=== PATIENT | male | born 1950 | race Two or more races ===

== ENCOUNTER 2016-10-11 05:13 | Day surgery (SDC) | payer MEDICARE, OTHER ==
[~2016-10-11] VITALS: Ht 167.6 cm; Wt 72.1 kg
--- NOTE | ~2016-10-11 | OR ---
PATIENT'S NAME: KAUR CARDENAS [facility] AGE: 66 Y [address] ROOM: [place] [address] LOCATION: [facility] [place] ADMIT DATE: 10/11/2016 OR/Procedure Report DISCHARGE DATE: FAMILY PHYSICIAN: PHYSICIAN, NO ATTENDING PHYSICIAN: Jonah Huerta SURGEON: Jonha Huerta MD CULTURIST: DATE OF PROCEDURE: 10/11/2016 PREOPERATIVE DIAGNOSIS: Carcinoma of the bladder. POSTOPERATIVE DIAGNOSIS: Carcinoma of the bladder. PROCEDURE: TUR, bladder tumor. DESCRIPTION OF PROCEDURE: After adequate anesthesia, he was prepped and draped. A cystoscope was inserted. The anterior urethra was normal. There was some early lateral lobe enlargement, but no significant obstruction. Examination of the bladder revealed changes on the trigone across or to the right orifice, consistent with recurrent transitional cell carcinoma. The remaining bladder was unremarkable. Resectoscope was inserted and this tissue across the trigone to the right orifice was all resected and fulgurated. The chips were irrigated from the bladder with the Milton evacuator. A #20 three-way Dwyer catheter was inserted. He was accompanied to recovery area. JONAH HUERTA MD EKNelsy/sahral /[id number] d: 10/11/16 1833 t: 10/15/16 0409, OPERATIVE SUMMARY
--- NOTE | ~2016-10-11 | HP ---
PATIENT'S NAME: KAUR CARDENAS [facility] AGE: 66 Y [address] ROOM: [place] [address] LOCATION: [facility] [place] ADMIT DATE: 10/11/2016 History & Physical DISCHARGE DATE: FAMILY PHYSICIAN: PHYSICIAN, UNKNOWN ATTENDING PHYSICIAN: Jonah Moise DATE OF SERVICE: 10/11/2016 HISTORY OF PRESENT ILLNESS: A 66-year-old male, who was found to have transitional cell carcinoma of the bladder in 2012, at which time he had a TUR of the tumor. He then did fine, but in May 2016, he had an abnormal urine cytology, and a cystoscopy and TUR of bladder tumor was done. He was found to have transitional cell carcinoma at the right bladder neck area. Pathology report revealed a low-grade non-invasive carcinoma. He is seen now for followup, cystoscopy, and biopsies. PAST MEDICAL HISTORY AND ILLNESSES: 1. Arteriosclerotic heart disease. 2. Hypertension. 3. Hypercholesteremia. OPERATIONS: As above. ALLERGIES: NONE KNOWN. PHYSICAL EXAMINATION: GENERAL: A well-developed, well-nourished male. CHEST: Clear. HEART: Normal sinus rhythm. ABDOMEN: Soft with no palpable masses. GENITOURINARY: Normal penis and meatus. Testicles are normal size and normal to palpation. Prostate is enlarged, smooth, symmetrical, and benign. RECTAL: No palpable masses. IMPRESSION: Transitional cell carcinoma of the bladder. PLAN: As above. PATIENT'S NAME: KAUR CARDENAS [facility] AGE: 66 Y [address] ROOM: [place] [address] LOCATION: [facility] [place] ADMIT DATE: 10/11/2016 History & Physical DISCHARGE DATE: FAMILY PHYSICIAN: PHYSICIAN, UNKNOWN ATTENDING PHYSICIAN: Jonah Moise JONAH MOISE MD EKNelsy/modl /[id number] D: 649 T: HISTORY & PHYSICAL
[~2016-10-11 05:13] MED LIST: ASPIRIN LO-DOSE81 MG PO; BRILINTA90 MG PO; CIPRO500 MG PO; COREG12.5 MG PO; CPAP INH; CRESTOR20 MG PO; DIOVAN80 MG PO; FLOMAX0.4 MG PO; INSPRA25 MG PO; XALATAN2.5 ML OPHTH
[2016-10-11 06:01] LABS: BASOPHIL % 0.4 %; EOSINOPHIL # 0.3 K/uL (0.0-0.5); EOSINOPHIL % 3.1 %; HEMATOCRIT 41.3 % (37.0-53.0); HEMOGLOBIN 13.5 g/dL (11.0-16.0); IMMATURE GRANULOCYTE % 0.4 %; LYMPHOCYTE # 2.7 K/uL (0.8-4.0); MCH 28.1 pg (27.0-34.0); MCHC 32.7 gm/dL (32.0-36.5); MONOCYTE # 0.7 K/uL (0.0-1.0); MONOCYTE % 8.9 %; MPV 8.9 fl (9.4-12.4); NEUTROPHIL # (ANC) 4.5 K/uL (1.4-9.0); NEUTROPHIL % 54.2 %; NRBC % 0 /100WBC (0-0.00); PLATELET COUNT 210 K/uL (150-450); WBC 8.3 K/uL (4.0-11.0)
[2016-10-11 06:20] LABS: ALBUMIN 3.6 gm/dL (3.5-5.0); ALK PHOS 93 IU/L (33-138); ALT 44 IU/L (12-78); AST 28 IU/L (10-40); BLOOD UREA NITROGEN 17 mg/dL (6-24); CALCIUM 8.8 mg/dL (8.5-10.5); CHLORIDE 104 mMol/L (96-110); CO2 27 mMol/L (22-32); CREATININE 0.8 mg/dL (0.6-1.3); ESTIMATED GFR (MDRD EQUATION) > 60; SODIUM 139 mMol/L (135-145); TOTAL PROTEIN 7.5 g/dL (6.0-8.4)
[2016-10-11 06:23] LABS: TOTAL BILIRUBIN 0.2 mg/dL (0.0-1.5)
--- NOTE | 2016-10-11 09:59 | NUR ---
PATIENT CBI IN PACU. NACL IRRIGATION 1900 ML IN. 1000 ML DILUTE PINK TINGED URINE OUT.
--- NOTE | 2016-10-11 16:43 | NUR ---
Significant Event: Patient is alert and oriented x3. VSS and on RA. Post op VS complete. Denies pain and refused all medication in PACU. Bedrest. Regular diet for supper. Has denied nausea. CBI running from slow to moderate to moderate to slow. Has passed a few clots. R)hand IV, fluids infusing. Goes by "Danish". Cooperative with cares. Follow up: D/C tomorrow probably
--- NOTE | 2016-10-12 00:44 | NUR ---
SIGNIFICANT EVENT: Alert & oriented. Bedrest. CBI running slow rate - urine is clear to pale pink. Regular diet, tolerating well. PIV to R) hand infusing D5 1/2NS at 100. VSS on RA. Denies pain/nausea. Pleasant and cooperative with cares.
--- NOTE | 2016-10-12 11:28 | NUR ---
ORDERS RECEIVED FOR THE PATIENT TO GO HOME TODAY WITH HIS INDWELLING URINARY CATHETER. DISCHARGE INSTRUCTIONS WERE PREPARED BY THE VIRTUAL NURSE AND WILL BE DISCUSSED AT THE BEDSIDE BY THE PRIMARY NURSE PATT MEREDITH. THE FOLLOWING INFORMATION WAS PREPARED INCLUDING SOPHIA TEACHING SHEETS PROVIDED: DISCHARGE INSTRUCTIONS FOR TRANSURETHRAL BLADDER TUMOR RESECTION, TREATING BLADDER CANCER-TRANSURETHRAL RESECTION, PREVENTING DVT, FELIX CATHETER REMOVAL, DISCHARGE INSTRUCTIONS-CARING FOR YOUR INDWELLING URINARY CATHETER, EMPTYING AND CLEANING YOUR URINARY CATHETER, AND DISCHARGE INSTRUCTIONS-CARING FOR YOUR LEG BAG. FOLLOW UP APPOINTMENT WAS MADE TO SEE DR. HUERTA ON October AT 11:45 FOR BCG AT [facility]. ALSO THE PATIENT WILL BE INFORMED HOW TO DISCONTINUE HIS FELIX ON October EARLY AM.
== END 2016-10-12 13:25 | disposition disaster alternative care site (69) ==
LOC: GSDC 05:13 → GMSU 08:45 → GSDC 14:00
PROVIDERS: Urology
PROC: 0TBB8ZZ Excision of Bladder, Via Natural or Artificial Opening Endoscopic (ICD-10-PCS; principal; 2016-10-11)
DX: C67.0 Malignant neoplasm of trigone of bladder (principal); I25.10 Atherosclerotic heart disease of native coronary artery without angina pectoris; I10 Essential (primary) hypertension; E78.00 Pure hypercholesterolemia, unspecified
CPT/HCPCS: J0690; J7120

== ENCOUNTER → 2017-02-07 | Day surgery (SDC) | payer MEDICARE, OTHER ==
[~2017-02-07] VITALS: Ht 167.6 cm; Wt 69.7 kg
--- NOTE | ~2017-02-07 | HP ---
PATIENT'S NAME: KAUR CARDENAS [facility] AGE: 66 Y [address] ROOM: [place] [address] LOCATION: [facility] ADMIT DATE: 02/07/2017 History & Physical DISCHARGE DATE: FAMILY PHYSICIAN: Wilmar Addison MD ATTENDING PHYSICIAN: Jonah Moise DATE OF SERVICE: HISTORY OF PRESENT ILLNESS: A 66-year-old male who was found to have transitional cell carcinoma of the bladder in 2012, at which time he had a TUR of the bladder tumor. Evaluations were normal until May 2016 when he had an abnormal urine cytology and a cystoscopy that showed transitional cell carcinoma of the bladder. This was resected transurethrally. The pathology report revealed noninvasive low-grade tumor. In October 2016, he was found to have a transitional cell carcinoma across the right hemitrigone which was resected transurethrally. Pathology report revealed a transitional cell carcinoma with no muscle invasion. He then received a course of BCG. He is seen now for followup cystoscopy and biopsies. PAST MEDICAL HISTORY: Illnesses: 1. Arteriosclerotic heart disease. 2. Hypertension. 3. Hypercholesteremia. OPERATIONS: As above. ALLERGIES: NONE KNOWN. PHYSICAL EXAMINATION: GENERAL: A well-developed, well-nourished alert male. CHEST: Clear to auscultation. HEART: Normal sinus rhythm. ABDOMEN: Soft with no palpable masses. : Normal penis and meatus. Testicles are normal size and normal to palpation. Prostate is slightly enlarged, smooth, symmetrical, and benign to palpation. RECTAL: Negative. PATIENT'S NAME: YADY CARDENASONY Aye [facility] AGE: 66 Y [address] ROOM: [place] [address] LOCATION: [facility] ADMIT DATE: 02/07/2017 History & Physical DISCHARGE DATE: FAMILY PHYSICIAN: Wilmar Addison MD ATTENDING PHYSICIAN: Jonah Moise IMPRESSION: Transitional cell carcinoma of the bladder. PLAN: As above. JONAH MOISE MD EKL/modl /[id number] D: [id number] T: [id number] HISTORY & PHYSICAL
--- NOTE | ~2017-02-07 | OR ---
PATIENT'S NAME: KAUR CARDENAS [facility] AGE: 66 Y [address] ROOM: [place] [address] LOCATION: [facility] [place] ADMIT DATE: 02/07/2017 OR/Procedure Report DISCHARGE DATE: FAMILY PHYSICIAN: Wilmar Addison MD ATTENDING PHYSICIAN: Jonah Moise SURGEON: Jonah Moise MD TOBACCO DRYING MACHINE OPERATOR: DATE OF PROCEDURE: 02/07/2017 PREOPERATIVE DIAGNOSIS: Transitional cell carcinoma of the bladder. POSTOPERATIVE DIAGNOSIS: Transitional cell carcinoma of the bladder. PROCEDURES PERFORMED: Cystoscopy and endoscopic bladder biopsies. DESCRIPTION OF PROCEDURE: After adequate anesthesia, he was prepped and draped. The cystoscope was passed. The anterior urethra was normal. He had early prostatic enlargement with obstruction. Examination of the bladder revealed changes over the right hemitrigone that was probable carcinoma in situ. The right orifice could never be seen. Numerous attempts were made to find the orifice with the yellow open-ended catheter and guidewire, but this was unsuccessful. The endoscopic forceps were used to biopsy this area. It was then fulgurated. He was then accompanied to the recovery area. JONAH MOISE MD EKL/modl /[id number] d: 02/07/17 1125 t: 02/08/17 0530, OPERATIVE SUMMARY
[2017-02-07 05:55] LABS: BASOPHIL % 0.5 %; EOSINOPHIL # 0.2 K/uL (0.0-0.5); HEMATOCRIT 41.5 % (37.0-53.0); HEMOGLOBIN 13.8 g/dL (11.0-16.0); IMMATURE GRANULOCYTE % 0.2 %; LYMPHOCYTE # 2.6 K/uL (0.8-4.0); LYMPHOCYTE % 32.8 %; MCH 28.9 pg (27.0-34.0); MCHC 33.3 gm/dL (32.0-36.5); MCV 86.8 fl (83.0-98.0); MONOCYTE # 0.7 K/uL (0.0-1.0); MONOCYTE % 8.5 %; MPV 8.9 fl (9.4-12.4); NEUTROPHIL # (ANC) 4.4 K/uL (1.4-9.0); NRBC % 0 /100WBC (0-0.00); PLATELET COUNT 177 K/uL (150-450); RBC 4.78 M/uL (3.50-5.50); RDW-CV 13.2 % (11.9-14.6)
[2017-02-07 06:16] LABS: ALBUMIN 3.6 gm/dL (3.5-5.0); ANION GAP 10.1 (10.0-19.0); CALCIUM 8.9 mg/dL (8.5-10.5); CREATININE 0.9 mg/dL (0.6-1.3); POTASSIUM 4.1 mMol/L (3.7-5.1); TOTAL PROTEIN 7.6 g/dL (6.0-8.4)
[2017-02-07 06:19] LABS: TOTAL BILIRUBIN 0.4 mg/dL (0.0-1.5)
== END | disposition disaster alternative care site (69) ==
LOC: GPOC 02-01 10:00 → GSDC 05:20 → GPOC 05:30
PROVIDERS: Urology
PROC: 0TBB8ZX Excision of Bladder, Via Natural or Artificial Opening Endoscopic, Diagnostic (ICD-10-PCS; principal; 2017-02-07)
DX: C67.0 Malignant neoplasm of trigone of bladder (principal); N30.20 Other chronic cystitis without hematuria; N40.1 Benign prostatic hyperplasia with lower urinary tract symptoms; N13.8 Other obstructive and reflux uropathy; I10 Essential (primary) hypertension; E78.00 Pure hypercholesterolemia, unspecified; I25.10 Atherosclerotic heart disease of native coronary artery without angina pectoris; Z98.890 Other specified postprocedural states
CPT/HCPCS: C1769; J2001; J7120; Q9967

== ENCOUNTER → 2017-02-11 | Outpatient (CLI) | payer MEDICARE, OTHER | END | disposition disaster alternative care site (69) | LOC: GRAD 09:33 | DX: C67.8 Malignant neoplasm of overlapping sites of bladder (principal) ==